=== PATIENT | male | born 1985 | race Caucasian/White ===

== ENCOUNTER → 2021-02-24 | Day surgery (SDC) | payer OTHER ==
[~2021-02-24] MED LIST: CAPS42.514 TP; GABA-586 PO; IPRATRPIUM/ALBUTEROL 0.5/2.5MG 3 ML NEBU. NEB PRN; IV RINGERS SOLUTION,LACTATED 1,000 ML IV SCH; LIDOCAINE 2% PF 5 ML VIAL. ONE; MIDAZOLAM HCL PF 2 MG/2 ML VIAL. IV ONE; ONDANSETRON PF 4 MG/2 ML VIAL. IV PRN; PROPOFOL 10,000 MCG/ML (20ML) VIAL IV ONE; PSYL368P33 PO; SERT100T PO; TRAZ-120 PO; albuterol inhaler INH
[2021-02-24 12:22] VITALS: BP 120/83
--- NOTE | 2021-02-27 17:06 | PATHOLOGY ---
[facility] Accession Number: [id number] . 01 Material submitted: . PART A: duodenum - DUODENUM FOR CELIAC PART B: stomach - ANTRUM GASTRITIS. Modifiers: ANTRUM PART C: colon - RANDOM COLON BIOPSIES FOR DIARRHEA . 01 Clinical history: . CELIAC, FAM HX COLON CA + GUIDE STOOL EGD/COLON EGD AND COLONOSCOPY . 01 Diagnosis: A Duodenum "duodenum, biopsy": - No diagnostic changes. - The villous pattern is not blunted. - Diagnostic features of celiac disease are not seen. . B. Gastric biopsy, antrum: - Mild chronic reactive gastropathy. - The immunoperoxidase stain for Helicobacter pylori is negative. . C. Colonic mucosa, random colon biopsies for diarrhea: - No diagnostic changes. - There is no evidence of acute cryptitis, granulomas, adenomatous change, changes of microscopic colitis or malignancy. (SHA:[facility]; 02/27/2021) [facility] 02/27/2021 1515 Local . 01 Electronically signed: . Jakob Clifton MD, Pathologist NPI- [id number] . 01 Gross description: . A. The specimen is received in formalin, labeled "Landon Junior, duodenum". Received are four segments of pale north tissue ranging in size from 0.3-0.4 cm in maximum dimensions. The specimen is submitted entirely in cassette A1. . B. The specimen is received in formalin, labeled "Landon Junior, antrum gastritis biopsy ". Received are two segments of pale north tissue measuring 0.2 and 0.7 cm in maximum dimensions. The specimen is submitted entirely in cassette B1. . C. The specimen is received in formalin, labeled "Landon Junior, random colon biopsy". Received are multiple segments of pale north tissue ranging in size from 0.2-0.4 cm in maximum dimensions. The specimen is submitted entirely in cassette C1. ([facility]; 02/26/2021) Q[facility]/QAC 02/26/2021 1300 Local . 01 Pathologist provided ICD-10: K31.9, Z80.0, Z12.11 . 01 CPT . 370842, 285804, 224853, [id number] Specimen Comment: A courtesy copy of this report has been sent to [phone] Specimen Comment: Report sent to DR. PERDOMO Performed at: [address], [place], [place] [id number] MD Jakob Clifton MD Phone: [phone]
== END | disposition home or self-care (01) ==
LOC: SURG 09:30
PROVIDERS: ATTEND Internal Medicine Gastroenterology
DX: K62.5 Hemorrhage of anus and rectum (principal); K52.9 Noninfective gastroenteritis and colitis, unspecified; K57.30 Diverticulosis of large intestine without perforation or abscess without bleeding; K64.0 First degree hemorrhoids; K21.00 Gastro-esophageal reflux disease with esophagitis, without bleeding; K29.50 Unspecified chronic gastritis without bleeding; K31.89 Other diseases of stomach and duodenum; K63.89 Other specified diseases of intestine; F41.9 Anxiety disorder, unspecified; F17.210 Nicotine dependence, cigarettes, uncomplicated; Z79.899 Other long term (current) drug therapy; Z98.890 Other specified postprocedural states; Z88.8 Allergy status to other drugs, medicaments and biological substances; Z80.0 Family history of malignant neoplasm of digestive organs
CPT/HCPCS: 43239; 45380; J2001; J2704; J7120; 88305; 88342